=== PATIENT | female | born 1995 | race Caucasian/White ===

== ENCOUNTER 2020-11-16 13:32 | Outpatient (CLI) | payer OTHER, SELFPAY ==
--- NOTE | ~2020-11-16 | MR_ITS ---
EXAMINATION: MR hip LT wo con DATE: 11/16/2020 15:07 INDICATION: Left hip pain. TECHNIQUE: Magnetic resonance imaging (MRI) of the left hip was performed without intravenous contras t. Sequences included axial and coronal PD-weighted FS FSE and axial T1-weighted FSE of the pelvis. S equences of the hip included 2D FIESTA, T1-weighted fast GRE, and axial, coronal, and sagittal PD-sam ghted FS FSE. COMPARISON: None FINDINGS: Bones/cartilage: Bone alignment is normal. The sacroiliac joints demonstrate tiny osteophytes. 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 Left femoral h ead/neck morphology is normal. There is a dysplastic bump at the junction of right femoral head and n mayuri, which may be seen with femoral acetabular impingement. There is a transverse low signal fracture line at the medial aspect of the base of left femoral neck with surrounding bone marrow edema. Left hip joint cartilage is normal. Labrum: There is a tear of left acetabular labrum at the chondrolabral junction. Large [id number] images o f right hip demonstrate a similar tear at the chondrolabral junction. Fluid: There is no hip joint effusion. No trochanteric bursitis. Soft tissues: The hamstring tendon origins are normal. The iliopsoas tendons are normal. The gluteus minimus and gl uteus medius tendons are normal. There is an intrauterine device in expected position. IMPRESSION: 1. Stress fracture of left femoral neck. 2. Bilateral acetabular labral tears. A dysplastic bump at the junction of right femoral head and nec k may be seen with femoral acetabular impingement. Reviewed, dictated and finalized at location A. IMPRESSION: 1. Stress fracture of left femoral neck. 2. Bilateral acetabular labral tears. A dysplastic bump at the junction of righ t femoral head and neck may be seen with femoral acetabular impingement.
== END 2020-11-16 13:33 | disposition home or self-care (01) ==
PROVIDERS: PCP Nurse Practitioner; Visit Provider Nurse Practitioner
DX: M84.359A Stress fracture, hip, unspecified, initial encounter for fracture (principal); S73.102A Unspecified sprain of left hip, initial encounter
CPT/HCPCS: 73721

== ENCOUNTER 2020-11-29 12:00 | Outpatient (CLI) | payer OTHER, SELFPAY | END 2020-11-29 12:01 | disposition home or self-care (01) | LOC: ANHSURGERY 12:04 | PROVIDERS: PCP Nurse Practitioner; Visit Provider Orthopaedic Surgery | DX: Z01.818 Encounter for other preprocedural examination (principal); M84.352A Stress fracture, left femur, initial encounter for fracture | CPT/HCPCS: 36415; 86850; 86900; 86901 ==

== ENCOUNTER → 2020-11-29 13:13 | Outpatient (CLI) | payer OTHER, SELFPAY ==
--- NOTE | ~2020-11-29 | CT_ITS ---
EXAMINATION: CT hip LT wo con DATE: 11/29/2020 13:42 INDICATION: Left hip pain. TECHNIQUE: Computed tomography (CT) of the left hip was performed without intravenous contrast. Autom ated exposure control and iterative reconstruction technique were employed. The dose-length product w as 186.30 mGy-cm. 3-D volume rendered reconstructions were created by the technologist on a separate workstation with radiologist guidance. COMPARISON: Pelvis and left hip radiographs 11/25/2020, left hip MRI 11/16/2020 FINDINGS: Bone alignment is normal. No fracture. Left hip joint demonstrates tiny osteophytes. No kelsey nt space narrowing. There is an intrauterine device in expected position. IMPRESSION: 1. No fracture identified. 2. Mild left hip osteoarthritis. Reviewed, dictated and finalized at location A.
== END ==
PROVIDERS: PCP Nurse Practitioner; Visit Provider Orthopaedic Surgery
DX: M25.552 Pain in left hip (principal); M16.12 Unilateral primary osteoarthritis, left hip
CPT/HCPCS: 73700

== ENCOUNTER 2020-11-29 14:30 | Outpatient (CLI) | payer OTHER, SELFPAY ==
--- NOTE | 2020-11-29 15:06 | ECG_ITS ---
Measurements Intervals [place] Rate: 56 P: 68 NH: 173 QRS: 67 QRSD: 86 T: 49 QT: 426 QTc: 415 Interpretive Statements SINUS BRADYCARDIA WITH SINUS ARRHYTHMIA BASELINE WANDER- I, AVR, AVL, V4-V6 BORDERLINE ECG Electronically Signed On 11-29-2020 16:14:06 CDT by Artis Salazar D.O.
[2020-11-29 15:25] LABS: Basophils Percent Auto 0.3 % (0.2-1.2); Eosinophils Absolute Auto 0.1 K/mm3 (0-0.3); Eosinophils Percent Auto 1.6 % (0-4.4); Hematocrit 36.7 % (37.0-47.0); Hemoglobin 12.2 g/dL (12.0-15.0); Immature Granulocyte Absolute 0.02 K/mm3 (0.00-0.031); Immature Granulocyte Percent A 0.3 % (0-0.5); Lymphocytes Absolute Auto 1.19 K/mm3 (0.9-3.2); Lymphocytes Percent Auto 19.5 % (18.3-44.2); Mean Corpuscular HGB Conc 33.2 g/dl (32-36); Mean Corpuscular Hemoglobin 33.4 pg (26-34); Mean Corpuscular Volume 100.5 fl (80-100); Mean Platelet Volume 10.7 fl (7.4-10.4); Monocytes Absolute Auto 0.4 K/mm3 (0.1-0.6); Monocytes Percent Auto 5.9 % (2.6-8.5); Neutrophils Absolute Auto 4.4 K/mm3 (1.3-6.7); Neutrophils Percent Auto 72.4 % (45.5-73.1); Platelet Count Result 207 k/mm3 (150-375); Red Blood Count 3.65 M/mm3 (4.2-5.4); Red Cell Distribution Width 12.3 % (11.5-14.5); White Blood Count 6.1 K/mm3 (4.5-10.0)
[2020-11-29 15:39] LABS: Alanine Aminotransferase 10 U/L (4-35); Albumin Level 4.3 g/dL (3.5-5.1); Alkaline Phosphatase 82 U/L (38-126); Anion Gap 9 mmol/L (8-16); Aspartate Amino Transferase 17 U/L (14-36); Bilirubin,Total 0.7 mg/dL (0.2-1.3); Blood Urea Nitrogen 21 mg/dL (7-17); Calcium 9.5 mg/dL (8.4-10.2); Carbon Dioxide 21 mmol/L (22-30); Chloride 108 mmol/L (98-107); Estimated Glomerular Filt Rate > 60; Glucose 91 mg/dL (65-110); Potassium 4.1 mmol/L (3.4-5.0); Sodium 138 mmol/L (137-145)
== END 2020-11-29 14:31 | disposition home or self-care (01) ==
PROVIDERS: PCP Nurse Practitioner; Visit Provider Nurse Practitioner
DX: Z01.818 Encounter for other preprocedural examination (principal)
CPT/HCPCS: 36415; 80053; 85025; 93005

== ENCOUNTER 2020-12-01 02:16 | Day surgery (SDC) | payer OTHER, SELFPAY ==
[2020-11-29 12:10] VITALS: BMI 23.0
[2020-11-29 13:00] VITALS: BP 102/57; PULSE 72; RESP 16; TEMP 36.9; O2SAT 100
--- NOTE | 2020-11-30 11:29 | P.PNAN_ITS ---
Anes - Initial Pre Proc Eval Procedure: Operation Date: 12/01/20 13:30 Proposed Procedures p Left Hip Percutaneous Pinning - Tye Gutiérrez MD Date/Time: 11/30/20 11:29 Surgeon: Tye Gutiérrez MD Pre Op Diagnosis: left hip femoral stress fx Patient Data Age: 25 Gender: F Height: 1.68 m Weight: 64.8 kg Last Vital Signs Temp 36.9 C 11/29/20 13:00 Pulse 72 11/29/20 13:00 Resp 16 11/29/20 13:00 BP 102/57 L 11/29/20 13:00 Pulse Ox 100 11/29/20 13:00 Allergies Allergy/AdvReac Type Severity Reaction Status Date / Time copper Allergy Swelling,RA Verified 12/01/20 11:55 SH,ITCHING Home Medications Medication Instructions Recorded Confirmed Type naproxen 500 mg tablet 500 mg PO BID #60 tablet 11/10/20 12/01/20 Rx chlorhexidine gluconate 4 % 1 applic TOPICAL ONCE #237 ml 11/26/20 11/29/20 Rx topical liquid rjdcuzr-ozrmyeboujtfs-duaharce 2 tablet PO Q4-6H PRN 11/29/20 12/01/20 History [Excedrin Migraine] metoprolol succinate 50 mg PO DAILY 11/29/20 12/01/20 History topiramate 50 mg PO HS 11/29/20 11/29/20 History Patient hx anesthesia problems: none Family hx anesthesia problems: none Results Review: All pre-operative results and documents have been reviewed as part of the pre-operative evaluation. [facility] Past Medical History Medical History (Updated 11/30/20 @ 11:29 by Cornel Mark MD) Lactose intolerance due to acquired lactase deficiency Migraine without aura, not intractable, with status migrainosus Stress fracture of femoral neck Social History Social History (Updated 11/25/20 @ 16:17 by Alla King MA) Smoking packs per day: 0.5 Smoking cigarettes per day: 10.0 Years smoked: 5 Smoking pack-years: 2.50 Smoking status: Current every day smoker Tobacco type: cigarettes and e-cigarettes/vaping Second hand tobacco smoke exposure: Yes Additional smoking assessment comments: CURRENTLY SMOKES CIGARETTES AND VAPES Alcohol intake: current Substance use: never Living arrangements: alone Additional occupation/education comments: [employer] driver Gender identity (if verbalized by the patient): Female Spiritual care concerns: No Anes - Eval Final PreProcedure Day of Procedure 11/30/20 11:29 Patient weight: normal Heart: regular rate and rhythm Lungs: clear to auscultation and normal air movement Airway: Mallampati scale class II Neurological: alert and oriented Last oral intake: >/= 8 hours ASA classification: II Emergent: no Anesthetic plan: proceed Anesthesia type and monitoring: general LMA and ETT Results Review: All pre-operative results and documents have been reviewed as part of the pre-operative evaluation. Informed Consent: The patient's anesthetic plan and its attendant risks and benefits were discussed with the patient/family/POA. Questions were solicited and answers provided to the satisfaction of the patient/family/POA.
[2020-12-01] VITALS (7 sets, daily range): BP systolic 95–104; BP diastolic 48–75; PULSE 47–72; RESP 10–16; TEMP 36.3–36.9; O2SAT 100; BMI 23.0
--- NOTE | ~2020-12-01 | XR_ITS ---
XR surgery orthopedic 12/01/2020 14:49 Indication: Left hip pinning. Stress fracture of the left femoral neck seen on prior MRI examination. Procedure: 2 fluoroscopic views of the left hip. 223 seconds of fluoroscopy. Comparison: Comparison to multiple prior studies sequentially, with oldest reviewed study dated 11/05. Findings: Status post internal fixation of the left femoral neck with 3 lag screws. No fracture line is identified. Left hip in anatomic alignment. Impression: 1: Status post recent internal fixation of the left femoral neck with 3 lag screws. Reviewed, dictated and finalized at location A. Impression: 1: Status post recent internal fixation of the left femoral neck with 3 lag scr ews.
--- NOTE | 2020-12-01 07:43 | WPDHPUPDATE1 ---
History and Physical Update Update Date/Time: 12/01/20 07:43 History and Physical has been reviewed, including an updated exam of the patient. There are NO changes in the patient's condition. Risks, benefits, and alternatives have been discussed and questions answered. Patient agrees to proceed with procedure.
[2020-12-01] MEDS: TRANEXAMIC ACID 1,000MG/ISO100 1,000 MG/100 ML BAG 200 MG IVPB (12:05)
[2020-12-01] MEDS: LACTATED RINGERS 1,000 ML 30 ML IV CONT ×2 (12:05→15:11)
[2020-12-01] MEDS: ACETAMINOPHEN 500 MG TABLET 1000 MG PO (12:13)
[2020-12-01] MEDS: KETOROLAC 15 MG/ML VIAL (*BKC) IV PUSH (12:13)
[2020-12-01] MEDS: ceFAZolin 2 GM/D5W 50 ML 2 GM/50 ML BAG IVPB (13:29)
--- NOTE | 2020-12-01 15:17 | W.PM.PROC2 ---
Procedure Note - Detailed Date of Procedure 12/01/20 Pre-op Diagnosis left femoral neck stress fracture Post-op Diagnosis same Procedure Performed PERCUTANEOUS PINNING LEFT FEMORAL NECK STRESS FRACTURE Surgeon Tye Gutiérrez MD Anesthesia general Description of Procedure THE PATIENT WAS TAKEN TO THE OPERATING ROOM AND PLACED UNDER GENERAL ANESTHESIA. THE PATIENT WAS PLACED ON A FRACTURE TABLE. THE LEFT LOWER EXTREMITY WAS PREPPED AND DRAPED IN THE STERIL FASHION FROM THE KNEE TO THE ILIAC CREST. THE INCISION WAS MADE ON THE LATERAL HIP JUST DISTAL TO THE GREATER TROCHANTER DOWN TO THE BONE. BLEEDERS WERE CAUTERIZED. 3 GUIDE PINS WERE PLACED THROUGH THE FEMORAL NECK AND PASSED THE FRACTURE SITE AND IN TO THE SUBCHONDRAL BONE OF THE FEMORAL HEAD. THREE 6.8 CANNULATED SCREWS WERE PLACED OVER THE GUIDE PINS AND THESE WERE SHOWN TO BE IN GOOD POSITION PER FLUOROSCOPY ON BOTH THE AP AND LATERAL VIEWS. ALL SCREWS HAD EXCELLENT BITES. THE WOUND WAS WASHED WELL. THE DEEP FASCIAL LAYER WAS APPROXIMATED WITH #1 VICRYL SUTURE, THE SUBCUTANEOUS LAYER WITH 2-0 VICRYL AND THE SKIN WAS APPROXIMATED WITH 2-0 QUIL AND DERMABOND. A STERILE DRESSING WAS PLACED. THE PATIENT WAS EXTUBATED AND SENT TO RECOVERY ROOM Estimated Blood Loss 20 Drains No Complications No immediate complications Condition stable Disposition PACU
[2020-12-01] MEDS: fentaNYL CITRATE INJ (*CRX) 100 MCG/2 ML VIAL 25 MCG IV PUSH ×4 (15:25→15:45)
== END 2020-12-01 17:20 | disposition home or self-care (01) ==
PROVIDERS: PCP Nurse Practitioner; Visit Provider Orthopaedic Surgery
PROC: (CPT 27235; principal; 2020-12-01 13:30)
DX: M84.352A Stress fracture, left femur, initial encounter for fracture (principal); X58.XXXA Exposure to other specified factors, initial encounter; F17.210 Nicotine dependence, cigarettes, uncomplicated; F17.290 Nicotine dependence, other tobacco product, uncomplicated
CPT/HCPCS: 27235; A9270; C1713; C9290; J0690; J1100; J1170; J1885; J2250; J2405; J2704; J3010; J7120

== ENCOUNTER → 2021-11-01 15:32 | Outpatient (CLI) | payer OTHER, SELFPAY ==
--- NOTE | ~2021-11-01 | MR_ITS ---
EXAMINATION: MR hip RT wo con DATE: 11/01/2021 16:28 INDICATION: Right hip pain TECHNIQUE: Magnetic resonance imaging (MRI) of the right hip was performed without intravenous contr ast. Sequences included full-field axial PD-weighted FS FSE and T1-weighted FSE, coronal of the pelvi s with PD-weighted FS FSE, T2-weighted FSE and T1-weighted FSE, small field of view of the right hip with axial PD-weighted FS FSE, sagittal PD-weighted FS FSE, coronal PD-weighted FS FSE and coronal T2 weighted FSE. Additional radial T1-weighted FGR oriented orthogonal to the acetabular rim were obt ained for evaluation of the labrum. COMPARISON: Pelvis and bilateral hip radiographs dated 10/17/2021 FINDINGS: Bones/labrum/cartilage: Lag screw fixation at the left femoral head and neck. Slight levocurvature of the visualized lumbar s pine. Transitional lumbosacral segment. Alignment is otherwise normal. No fracture, avascular necros is or pathologic marrow replacing process. Bilateral decreased femoral head neck offset which could p redispose towards cam-type femoral acetabular impingement. There is a tear at the base of the superol ateral right acetabular labrum. Similar tear is suggested at the superolateral left acetabular labrum but not diagnostically evaluated on the larger field of view images. Articular cartilage is normal. Fluid: Symmetric physiologic amount of fluid within both hip joints. Soft tissues: Normal and symmetric muscle bulk and signal in the pelvis and visualized proximal thighs. The iliopso as, gluteal and proximal hamstring tendons are normal. Low signal intensity T-shaped IUD in expected position within the anteverted uterus. Multiple subcentimeter cysts/follicles at the bilateral ovarie s. Limited evaluation of visceral organs of the pelvis is otherwise unremarkable. No pathologically enlarged pelvic/inguinal lymphadenopathy. IMPRESSION: 1. . Tear at the base of the superolateral right acetabular labrum. Similar tear suggested but not di agnostically evaluated at the contralateral left hip on the larger field of view images. 2. Bilateral decreased femoral head/neck offset which could predispose towards cam-type femoral aceta bular impingement. 3. IUD in expected position. Reviewed, dictated and finalized at location A. IMPRESSION: 1. . Tear at the base of the superolateral right acetabular labrum. Similar tea r suggested but not diagnostically evaluated at the contralateral left hip on t he larger field of view images. 2. Bilateral decreased femoral head/neck offset which could predispose towards cam-type femoral acetabular impingement. 3. IUD in expected position.
== END ==
PROVIDERS: PCP Nurse Practitioner; Visit Provider Orthopaedic Surgery
DX: S73.101A Unspecified sprain of right hip, initial encounter (principal); Z97.5 Presence of (intrauterine) contraceptive device
CPT/HCPCS: 73721

== ENCOUNTER 2022-02-17 11:17 | Outpatient (CLI) | payer OTHER, SELFPAY ==
[2022-02-17 17:40] LABS: Alanine Aminotransferase 15 U/L (6-35); Albumin Level 4.4 g/dL (3.5-5.1); Alkaline Phosphatase 86 U/L (38-126); Anion Gap 7 mmol/L (8-16); Aspartate Amino Transferase 22 U/L (14-36); Bilirubin,Total 0.5 mg/dL (0.2-1.3); Blood Urea Nitrogen 7 mg/dL (7-17); Calcium 9.1 mg/dL (8.4-10.2); Carbon Dioxide 28 mmol/L (22-30); Chloride 106 mmol/L (98-107); Estimated Glomerular Filt Rate > 60; Glucose 77 mg/dL (65-110); Potassium 3.7 mmol/L (3.4-5.0); Sodium 141 mmol/L (137-145)
[2022-02-17 17:45] LABS: Basophils Percent Auto 0.5 % (0.2-1.2); Eosinophils Absolute Auto 0.3 K/mm3 (0-0.3); Eosinophils Percent Auto 5.1 % (0-4.4); Hematocrit 37.7 % (37.0-47.0); Hemoglobin 12.3 g/dL (12.0-15.0); Immature Granulocyte Absolute 0.01 K/mm3 (0.00-0.031); Immature Granulocyte Percent A 0.2 % (0-0.5); Lymphocytes Absolute Auto 1.29 K/mm3 (0.9-3.2); Lymphocytes Percent Auto 23.4 % (18.3-44.2); Mean Corpuscular HGB Conc 32.6 g/dl (32-36); Mean Corpuscular Hemoglobin 31.9 pg (26-34); Mean Corpuscular Volume 97.7 fl (80-100); Mean Platelet Volume 11.3 fl (7.4-10.4); Monocytes Absolute Auto 0.6 K/mm3 (0.1-0.6); Monocytes Percent Auto 10.9 % (2.6-8.5); Neutrophils Absolute Auto 3.3 K/mm3 (1.3-6.7); Neutrophils Percent Auto 59.9 % (45.5-73.1); Platelet Count Result 276 k/mm3 (150-375); Red Blood Count 3.86 M/mm3 (4.2-5.4); Red Cell Distribution Width 12.4 % (11.5-14.5); White Blood Count 5.5 K/mm3 (4.5-10.0)
[2022-02-17 17:48] LABS: Iron 87 ug/dL (37-170)
[2022-02-17 17:58] LABS: Percent Iron Saturation 24 % (20-50)
[2022-02-17 18:34] LABS: Vitamin D 25 Hydroxy 25.8 ng/mL
== END 2022-02-17 11:18 | disposition home or self-care (01) ==
LOC: ANHGOSHLAB 11:19
PROVIDERS: PCP Nurse Practitioner; Visit Provider Nurse Practitioner Family
DX: D64.9 Anemia, unspecified (principal); G43.001 Migraine without aura, not intractable, with status migrainosus; F41.9 Anxiety disorder, unspecified; E55.9 Vitamin D deficiency, unspecified
CPT/HCPCS: 36415; 80053; 82306; 82728; 83540; 83550; 84443; 85025